=== PATIENT | female | born 1950 | race Caucasian/White ===

== ENCOUNTER 2019-07-11 16:15 | Outpatient (RCR) | payer MEDICARE, SELFPAY ==
[2019-06-09 12:30] VITALS: BP_SYST 150
--- NOTE | 2019-06-09 13:25 | PTOPEVAL ---
PHYSICAL THERAPY EVALUATION AND PLAN OF CARE 06-09-2019 The Physical Therapy evaluation was completed and the plan of treatment is established for 1-2x/ week for 4 weeks. Thank you for referring this patient to [facility]. Please review, sign, date and return this plan of care TERRIE. I agree with and certify that the following plan of care is medically necessary. Referring Physician Date Attending Provider: Dr. Warner Cohn *PT Outpatient Evaluation Start: 06/09/19 12:38 Document 06/09/19 12:30 CAMMY (Rec: 06/09/19 13:25 CAMMY [id number]) Therapy Assessment Status Assessment Status Assessment Status Evaluation Outpatient Past Medical History Neurological History Hx Neurological Disorders No Significant History Cardiovascular History Hx Hypertension Yes: meds Respiratory History Hx Respiratory Disorders No Significant History Gastrointestinal History Hx Gastrointestinal Disorders No Significant History Genitourinary History Hx Genitourinary Disorders No Significant History Musculoskeletal History Hx Other Musculoskeletal Disorders Yes: R frozen shoulder 3-4 yr ago Hematological History Hx Hematological Disorders No Significant History Endocrine History Hx Diabetes Yes: meds control HEENT History Hx HEENT Disorders No Significant History Integumentary History Hx Skin Disorders No Significant History Evaluation Information Problem Diagnosis L shoulder pain Onset 05-28-19 Subjective Information shoveling snow and worked that Query Text:As Reported By Patient/ day, onset of pain that night Family ; to ER 05-31-19 due to increased pain; xrays; flexeril and naproxen helped; have been doing stretching exer on my own. 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
--- NOTE | 2019-06-27 11:33 | PCPTNOTE ---
pt did not show for today's appt;
--- NOTE | 2019-06-28 15:46 | PCPTNOTE ---
pt came into dept today, wrong day- missed yesterday's appt; she also canceled appt later this week.
--- NOTE | 2019-07-06 12:00 | PCPTNOTE ---
pt called and canceled today's appt for reeval due to illness;
--- NOTE | 2019-07-11 16:43 | PTOPEVAL ---
PHYSICAL THERAPY DISCHARGE 07-11-2019 Mrs. Suáerz has received 5 Physical Therapy sessions, from June 09 to today, for the diagnosis of L shoulder pain. The goals were achieved, therefore, she will be discharged from PT at this time. Thank you for referring Christina to [facility]. Please review, sign, date and return this discharge TERRIE. I agree with and certify that the following plan of care is medically necessary. Referring Physician Date Attending Provider: Dr. Warner Cohn *PT Outpatient Discharge summary Document 07/11/19 16:20 CAMMY (Rec: 07/11/19 16:42 CAMMY [email or web address]) Subjective Information Christina reports: no pain in Query Text:As Reported By Patient/ shoulder for about 2 weeks, Family doing all work and home tasks without any problems; is doing her exercises and agrees to discharge from PT services. Pain Assessment Timing of Pain Assessment Timing of Pain Assessment Assessment Self Report Self Report Pain Level 0 Pain Score Pain Score 0: Self Report Additional Pain Score Comments no pain in shoulder Upper Extremity Range of Motion Scapular/ Shoulder Range of Motion Left Shoulder Flexion - Active 130 Shoulder Abduction - Active 130 Shoulder Medial Rotation - Active thumb to lower scapular Query Text:Reach Behind the Back Shoulder Lateral Rotation - Active palm to back of head Query Text:Reach Behind the Head Scapular/Shoulder Range of Motion no pain with shoulder ROM Comments Upper Extremity Muscle Strength Testing General Upper Extremity Strength Gross Upper Extremity Strength Comments L shoulder in standin reps: flexion 3#, abduction 3# through available ROM; standing shoulder circles, scapular adduction and posture correction x 5 reps; B UE lift box floor/waist height max to 30# without any pain in shoulder, good mechanics; reviewed HEP, to continue with green theraband; supine stretch with cane, does not need to perform, unless want to stretch shoulder; posture- stand with forward head, increase cervical extension, increase thoracic kyphosis and rounded shoulders
== END 2019-07-12 08:38 | disposition home or self-care (01) ==
LOC: ANHPT 16:15
DX: M25.512 Pain in left shoulder (principal)
CPT/HCPCS: 97110; 97161